=== PATIENT | male | born 1990 | race Caucasian/White ===

== ENCOUNTER 2020-01-16 23:52 | Emergency (ER) | payer OTHER ==
[~2020-01-16] VITALS: Ht 175.3 cm; Wt 86.2 kg
[~2020-01-16 23:52] MED LIST: ANAPROX DS550 MG PO; BACTRIM DS TAB1 EACH PO; HYDROCODON-ACE1 EACH PO; HYDROCODONE-AP1 EAC6 PO; IBUPROFEN 800800 M1 PO; KEFLEX500 MG PO; NOHOMEMEDICATIONS; NORCO 5-325 TA1 EACH PO; PENICILLIN V P500 MG PO; ULTRAM 50MG TAB50 MG PO
[2020-01-17 00:30] VITALS: BP 160/99
== END 2020-01-17 00:30 | disposition left against medical advice (07) ==
LOC: M.ERS 23:52
DX: F29 Unspecified psychosis not due to a substance or known physiological condition (principal)

== ENCOUNTER 2020-12-28 12:27 | Emergency (ER) | payer OTHER ==
[~2020-12-28] VITALS: Ht 172.7 cm; Wt 68.0 kg
[2020-12-28 12:34] VITALS: BP 131/80
== END 2020-12-28 12:40 | disposition home or self-care (01) ==
LOC: M.ERS 12:27
DX: R06.02 Shortness of breath (principal); R53.1 Weakness